=== PATIENT | female | born 1995 | race Caucasian/White ===

== ENCOUNTER 2018-08-21 08:49 | Observation (INO) | payer OTHER ==
[2018-08-21 09:43] LABS: PLATELET COUNT 194 10^3/uL (150-400)
[2018-08-21] MEDS ORDERED: NS 1,000 ML IV ONE ×2 (09:54→12:22)
--- NOTE | 2018-08-21 09:58 | EDPHY ---
H & P Source: Patient <Estuardo Saenz - Last Filed: 08/21/18 12:32> Stated Complaint: rlq abd pain - Personal History LMP (Females 10-55): 1-7 Days Ago Current Tetanus Diphtheria and Acellular Pertussis (TDAP): Yes - Medical/Surgical History Hx Asthma: No Hx Chronic Respiratory Disease: No Hx Diabetes: No Hx Cardiac Disease: No Hx Renal Disease: No Hx Cirrhosis: No Hx Alcoholism: No Hx HIV/AIDS: No Hx Splenectomy or Spleen Trauma: No Other PMH: denies - Social History Smoking Status: Never smoked <Ata Portillo - Last Filed: 08/21/18 16:57> Time Seen by Provider: 08/21/18 08:54 HPI/ROS: CLINICAL IMPRESSION: Right lower quadrant abdominal pain ASSESSMENT/PLAN: 23-year-old female presents to the emergency department by request of her primary care for evaluation of approximately 18 hr of right lower quadrant pain associated with anorexia, nausea, and fever last night. Patient has significant right lower quadrant pain, guarding, and mild focal peritoneal findings. Labs show a leukocytosis of 12 with left shift, no electrolyte imbalance or acute renal failure. Urine shows no signs of UTI, pyelonephritis, and patient is not . Imaging options discussed including ultrasound of the appendix versus CT and patient has elected for CT imaging. CT was read and interpreted by radiologist showing an 8 mm appendix, mild inflammation versus artifact present, indeterminate read for acute appendicitis. Case was discussed with Dr. Saenz who also saw and examined the patient. Dr. Rosa with General surgery came to the ED and evaluated the patient as well. It was determined that this may be a very early appendicitis and she was taken to the operating room after consent was obtained by General surgery. IV antibiotics and Toradol ordered in the ED per General surgery request. Patient stabilized prior to discharge to OR. DIFFERENTIAL DX: Differential diagnosis includes but not limited to acute appendicitis, ovarian torsion, ovarian cyst, salpingitis, TOA, small-bowel obstruction, cholecystitis , nephrolithiasis, ureterolithiasis, ectopic , PID, UTI, pyelonephritis. ED PROCEDURES: ED COURSE: 10:00 a.m.: Labs and urine results discussed with the patient. She remains with significant right lower quadrant pain with focal peritoneal findings but is refusing antiemetics and IV analgesics. She has agreed to CT scan. Urine negative. 1110: Case and CT discussed with Dr. Sharpe. CT read as "mild inflammation vs artifact" Appendix dilated to 8mm. Reviewed CT with Dr. Saenz who also saw and examined patient. Will discuss with Dr. Rosa. CHIEF COMPLAINT: Right lower quadrant abdominal pain HPI: This is a healthy 23-year-old female presents to the emergency department by request of PCP, Clayton David PA-C, for evaluation of possible appendicitis. Patient reports yesterday evening she developed a fever of 100. At midnight awoke with severe right lower quadrant pain that persisted for 3 hr. Pain had abated slightly this morning, she went for a walk but then pain returned and has been severe since that time. This is associated with nausea and anorexia. She last ate last night. No reported vomiting or diarrhea. She has felt slightly constipated. No history of prior abdominal surgeries. She is sexually active, takes a mini pill, is currently on her menstrual cycle, and does not believe she is . No history of gynecologic complaints including ovarian cyst, endometriosis or fibroids. No UTI symptoms or abnormal discharge. She has not taken anything for pain. No new medications, antibiotics, new foods or travel. PMH: Otherwise healthy Pertinent Past Surgical History: None reported Family History: Noncontributory Social History: Nonsmoker ROS: All other systems negative Constitutional: + fever, no chills, +appetite change.] ENT: No sore throat, congestion, ear pain. Cardiovascular: No chest pain, no palpitations. Respiratory: No cough, no shortness of breath. Gastrointestinal: no vomiting, diarrhea. Genitourinary: No hematuria, dysuria, flank pain, pelvic pain Musculoskeletal: No back pain, joint swelling, joint pain, myalgias. Skin: No rashes, color change. Neurological: No headache, dizziness, weakness. PHYSICAL EXAM: General Appearance: Alert, oriented, appropriate, cooperative, NAD, well hydrated, non-toxic appearing, VSS, no hypoxia, appears uncomfortable HEENT: TMs are clear bilaterally no perforation or FB, no injection, no evidence of serous or mucopurulent otitis. Oropharynx clear is no erythema or exudates, no tonsillar hypertrophy or asymmetry. Dentition without abnormality. Neck: Supple, nontender, no lymphadenopathy, no midline pain, FROM, no meningismus. Respiratory: There are no retractions, lungs are clear to auscultation. Cardiac: Regular rate and rhythm, no murmurs or gallops. Gastrointestinal: Abdominal pain with guarding to RLQ. pain extends into RUQ. No distension. Pain over McBurney's point. Neurological: Alert and oriented x 3, CN 2-12 grossly intact, normal gait no ataxia, DTR's intact, normal sensation and strength Skin: Warm, dry, no rashes, no nodules on palpation. Psychiatric: Patient is oriented X 3, there is no agitation. MDM: Patient was seen independently by established practice protocols. Secondary supervising physician at time of evaluation was Dr. Saenz. Diagnosis: Right lower quadrant abdominal pain, nausea. New, requires workup Summary: See Assessment and Plan for summary of ED visit Clinical lab tests: ordered / reviewed. Independent visualization of images, tracing, or specimens: Yes. Discussed patient with another provider: Dr. Saenz, Dr. Rosa Risk of comlications, morbidity, mortality: Presenting problem moderate Diagnostic procedures moderate Management Options moderate Patient Progress: Stable. (Ata Portillo) Constitutional: Initial Vital Signs Temperature (C) 36.6 C 08/21/18 08:50 Heart Rate 67 08/21/18 08:50 Respiratory Rate 18 08/21/18 08:50 Blood Pressure 139/85 H 08/21/18 08:50 O2 Sat (%) 98 08/21/18 08:50 O2 Delivery Mode Room Air Allergies/Adverse Reactions: No Known Allergies Allergy (Verified 08/21/18 13:01) Home Medications: Medication Instructions Recorded Norethindrone [Serena] 1 each PO DAILY 08/21/18 Medical Decision Making <Estuardo Saenz - Last Filed: 08/21/18 12:32> <Ata Portillo - Last Filed: 08/21/18 16:57> - Diagnostics Imaging Results: Imaging Impressions Abdomen CT 08/21/18 09:53 Impression: 1. Equivocal for mild appendicitis. Tip of the appendix has minimal enhancement and periappendiceal stranding; however, adjacent artifact obscures fine detail. 2. Trace free fluid in the pelvis. Normal appearing right ovary. Findings discussed with Emergency Department physician assistant manager/embalmer, Ata Portillo PA-C on August 21, 2018 at 1110 hours. Other Provider: Independent physician evaluation: I evaluated and participated in the management of the patient. I also evaluated the patient independently. My co-signature indicates that I have reviewed this chart and I agree with the findings and plan of care as documented. My personal H&P findings include: Patient presents to the ED with a 1 day history of worsening abdominal pain. She denies any fever, vomiting or dysuria. She denies prior history of abdominal pathology. She currently rates her pain is moderate to severe in nature. Physical exam: General Appearance: Alert, no distress Eyes: Pupils equal and round no pallor or injection ENT, Mouth: Mucous membranes moist Respiratory: There are no retractions, lungs are clear to auscultation Cardiovascular: Regular rate and rhythm Gastrointestinal: Marked tenderness to palpation with rebound in the right lower quadrant, no peritoneal signs Neurological: 5 out of 5 strength all 4 extremities Skin: Warm and dry, no rashes Musculoskeletal: Neck is supple nontender Extremities: symmetrical, full range of motion Psychiatric: Patient is oriented X 3, there is no agitation ED course: Patient was noted to have a slight leukocytosis with an elevated white blood cell count of 12K. CT scan of the abdomen pelvis was obtained which demonstrates possible appendiceal inflammation versus artifact. Re-evaluated the patient personally at 11:15 a.m.: She continues to have ongoing right lower quadrant tenderness. Surgical consultation is requested from Dr. Rosa. 12:30 p.m.: The patient will be taken to surgery by Dr. Rosa. She received IV antibiotics in the emergency department. (Estuardo Saenz) - Data Points Laboratory Results: Laboratory Results 08/21/18 09:00 08/21/18 09:00 08/21/18 08/21/18 08/21/18 09:10 09:00 09:00 WBC 12.41 10^3/uL H 10^3/uL (3.80-9.50) RBC 4.33 10^6/uL 10^6/uL (4.18-5.33) Hgb 13.7 g/dL g/dL (12.6-16.3) Hct 40.9 % % (38.0-47.0) MCV 94.5 fL fL (81.5-99.8) MCH 31.6 pg pg (27.9-34.1) MCHC 33.5 g/dL g/dL (32.4-36.7) RDW 12.9 % % (11.5-15.2) Plt Count 194 10^3/uL 10^3/uL (150-400) MPV 10.9 fL fL (8.7-11.7) Neut % (Auto) Not Reported Lymph % (Auto) Not Reported Rusk % (Auto) Not Reported Eos % (Auto) Not Reported Baso % (Auto) Not Reported Nucleat RBC Rel Count Not Reported Absolute Neuts (auto) Not Reported Absolute Lymphs (auto) Not Reported Absolute Monos (auto) Not Reported Absolute Eos (auto) Not Reported Absolute Basos (auto) Not Reported Absolute Nucleated RBC Not Reported Immature Gran % Not Reported Seg Neutrophils % 71.8 % % Band Neutrophils % 0.0 % % Lymphocytes % 22.7 % % Monocytes % 5.5 % % Eosinophils % 0.0 % % Basophils % 0.0 % % Metamyelocytes % 0.0 % % Myelocytes % 0.0 % % Promyelocytes % 0.0 % % Blast Cells % 0.0 % % Immature Gran # Not Reported Absolute Seg Neuts 8.72 10^3/uL H 10^3/uL (1.70-6.50) Absolute Band Neuts 0.00 10^3/uL 10^3/uL (0.00-0.70) Absolute Lymphocytes 2.76 10^3/uL 10^3/uL (1.00-3.00) Absolute Monocytes 0.67 10^3/uL 10^3/uL (0.30-0.80) Absolute Eosinophils 0.00 10^3/uL L 10^3/uL (0.03-0.40) Absolute Basophils 0.00 10^3/uL L 10^3/uL (0.02-0.10) Absolute Metamyelocyte 0.00 10^3/mL 10^3/mL (0.00-0.00) Absolute Myelocytes 0.00 10^3/mL 10^3/mL (0.00-0.00) Absolute Promyelocytes 0.00 10^3/uL 10^3/uL (0.00-0.00) Absolute Plasma Cells 0.00 10^3/uL 10^3/uL (0.00-0.00) Nucleated RBCs 0 /100 WBC /100 WBC (0-0) Absolute Blast Cells 0.00 10^3/uL 10^3/uL (0.00-0.00) Plasma Cells % 0.0 % % Platelet Estimate ADEQUATE (ADEQ) Sodium 139 mEq/L mEq/L (135-145) Potassium 4.0 mEq/L mEq/L (3.3-5.0) Chloride 104 mEq/L mEq/L (97-110) Carbon Dioxide 24 mEq/l mEq/l (22-31) Anion Gap 11 mEq/L mEq/L (6-14) BUN 9 mg/dL mg/dL (7-23) Creatinine 0.7 mg/dL mg/dL (0.6-1.0) Estimated GFR > 60 Glucose 87 mg/dL mg/dL (70-100) Calcium 9.7 mg/dL mg/dL (8.5-10.4) Urine RBC 1-3 /hpf /hpf (0-3) Urine WBC 1-3 /hpf /hpf (0-3) Ur Epithelial Cells TRACE /lpf /lpf (NONE-1+) Medications Given: Acetaminophen (Tylenol) 1,000 mg PO Q8 DEX Stop: 02/17/19 15:29 Last Admin: 08/21/18 15:25 Dose: 1,000 mg Discontinued Medications Cefazolin Sodium (Ancef Syringe) Confirm Administered Dose 2 gm .ROUTE .STK-MED ONE Stop: 08/21/18 12:58 Last Admin: 08/21/18 13:30 Dose: 2 gm Fentanyl (Sublimaze) 25 - 100 mcg IVP Q5M PRN PRN Reason: PACU, IMMEDIATE Pain control Stop: 08/21/18 14:13 Last Admin: 08/21/18 15:21 Dose: 25 mcg Heparin Sodium (Porcine) (Heparin Sc Injection) Confirm Administered Dose 10, 000 unit .ROUTE .STK-MED ONE Stop: 08/21/18 12:58 Last Admin: 08/21/18 13:30 Dose: 10,000 unit Sodium Chloride (Ns) 1,000 mls @ 0 mls/hr IV EDNOW ONE; Wide Open PRN Reason: Protocol Stop: 08/21/18 09:55 Last Admin: 08/21/18 09:58 Dose: 1,000 mls Ceftriaxone Sodium/Dextrose (Rocephin 1 Gm (Premix)) 50 mls @ 100 mls/hr IV EDNOW ONE PRN Reason: Protocol Stop: 08/21/18 12:49 Last Admin: 08/21/18 12:33 Dose: 50 mls Metronidazole/Sodium Chloride (Flagyl 500 Mg (Premix)) 100 mls @ 100 mls/hr IV EDNOW ONE PRN Reason: Protocol Stop: 08/21/18 13:20 Last Admin: 08/21/18 12:34 Dose: 100 mls Sodium Chloride (Ns) 1,000 mls @ 0 mls/hr IV EDNOW ONE; Wide Open PRN Reason: Protocol Stop: 08/21/18 12:23 Last Admin: 08/21/18 12:34 Dose: 1,000 mls Lactated Ringer's (Lr) 1,000 mls @ 0 mls/hr IV ONCE ONE PRN Reason: Per Protocol Stop: 08/21/18 13:02 Last Admin: 08/21/18 15:27 Dose: Not Given Ketorolac Tromethamine (Toradol) 30 mg IVP EDNOW ONE Stop: 08/21/18 12:22 Last Admin: 08/21/18 12:33 Dose: 30 mg Point of Care Test Results: Urine Collection Date 08/21/18 Collection Time 09:10 HCG Results Negative Departure <Estuardo Saenz - Last Filed: 08/21/18 12:32> <Ata Portillo - Last Filed: 08/21/18 16:57> - Departure Disposition: [facility] Inpatient Acute Clinical Impression: Acute appendicitis Condition: Good
[2018-08-21] MEDS ORDERED: IOPAMIDOL (ISOVUE-300) 100 ML BTL ONE (09:59)
[2018-08-21] MEDS ORDERED: KETOROLAC 30 MG/1 ML SDV IVP ONE (12:21)
[2018-08-21] MEDS ORDERED: ONDANSETRON 4 MG/2 ML VIAL IVP PRN ×2 (12:36→13:13)
[2018-08-21] MEDS ORDERED: HYDROmorphONE/DILAUDID 1 MG/ML INJ IVP PRN (12:36)
[2018-08-21] MEDS ORDERED: ACETAMINOPHEN 325 MG TAB PO SCH (12:45)
[2018-08-21] MEDS ORDERED: MIDAZOLAM 2 MG/2 ML VIAL ONE (12:57)
[2018-08-21] MEDS ORDERED: HEPARIN 5,000 UNIT/0.5 ML INJ ONE (12:57)
[2018-08-21] MEDS ORDERED: ROCURONIUM 50 MG/5 ML VIAL ONE (12:57)
[2018-08-21] MEDS ORDERED: LIDOCAINE 2% 2 ML INJ ONE (12:57)
[2018-08-21] MEDS ORDERED: ONDANSETRON 4 MG/2 ML VIAL ONE (12:57)
[2018-08-21] MEDS ORDERED: PROPOFOL 200 MG/20 ML VIAL ONE (12:57)
[2018-08-21] MEDS ORDERED: ceFAZolin 1 GM/5 ML SYR ONE (12:57)
[2018-08-21] MEDS ORDERED: fentaNYL 250 MCG/5 ML INJ ONE (12:57)
[2018-08-21] MEDS ORDERED: DEXAMETHASONE 4 MG/ML VIAL ONE (12:57)
[2018-08-21] MEDS ORDERED: LR 1,000 ML IV SCH (13:00)
[2018-08-21] MEDS ORDERED: LR 1,000 ML IV ONE (13:01)
[2018-08-21] MEDS ORDERED: MEPERIDINE 25 MG/0.5 ML AMP IVP PRN (13:13)
[2018-08-21] MEDS ORDERED: PHENYLEPHRINE HCL 100 MCG/ML SYR IVP PRN (13:13)
[2018-08-21] MEDS ORDERED: fentaNYL 100 MCG/2 ML INJ IVP PRN (13:13)
[2018-08-21] MEDS ORDERED: NALOXONE HCL 0.4 MG/ML INJ IVP PRN (13:13)
[2018-08-21] MEDS ORDERED: METOCLOPRAMIDE 10 MG/2 ML VIAL IVP PRN (13:13)
[2018-08-21] MEDS ORDERED: oxyCODONE IR 5 MG TAB PO PRN (13:13)
[2018-08-21] MEDS ORDERED: HYDROmorphONE/DILAUDID 2 MG/ML INJ IVP PRN (13:13)
[2018-08-21] MEDS ORDERED: LR 500 ML IV PRN (13:13)
[2018-08-21] MEDS ORDERED: PROMETHAZINE HCL 25 MG/ML INJ IVP PRN (13:13)
--- NOTE | 2018-08-21 13:13 | PDANEPAE ---
ANE Past Medical History - Cardiovascular History Hx Hypertension: No Hx Chest Pain: No - Pulmonary History Hx COPD: No Hx Oxygen in Use at Home: No Hx Sleep Apnea: No - Endocrine History Hx Diabetes: No - Renal History Hx Renal Disorders: No - Liver History Hx Hepatic Disorders: No - Neurological & Psychiatric Hx Hx Neurological and Psychiatric Disorders: No - Cancer History Hx Cancer: No - Congenital Disorder History Hx Congenital Disorders: No - GI History Gastrointestinal History Comment: Hx of colonoscopy for irregular bowel habits. Denies Crohn or uc - Surgical History Prior Surgeries: Colonoscopy ANE Review of Systems Review of Systems: ANE Patient History - Allergies Allergies/Adverse Reactions: No Known Allergies Allergy (Verified 08/21/18 13:01) - Home Medications Home Medications: Norethindrone [Serena] 1 each PO DAILY 08/21/18 [Last Taken Unknown] - NPO status NPO Since - Liquids (Date): 08/21/18 NPO Since - Liquids (Time): 08:00 NPO Since - Solids (Date): 08/20/18 NPO Since - Solids (Time): 20:00 - Smoking Hx Smoking Status: Never smoked MONALISA Labs/Vital Signs - Labs Result Diagrams: 08/21/18 09:00 08/21/18 09:00 - Vital Signs Blood Pressure: 126/80 Heart Rate: 69 Respiratory Rate: 16 O2 Sat (%): 96 Height: 167.64 cm Weight: 63.503 kg MONALISA Physical Exam - Airway Neck exam: FROM Mallampati Score: Class 1 Mouth exam: normal dental/mouth exam - Pulmonary Pulmonary: no respiratory distress, no rales or rhonchi, clear to auscultation - Cardiovascular Cardiovascular: regular rate and rhythym, no murmur, rub, or gallop - ASA Status ASA Status: II, E ANE Anesthesia Plan Anesthesia Plan: general endotracheal anesthesia
--- NOTE | 2018-08-21 13:21 | GHP ---
DATE OF ADMISSION: 08/21/2018 ADMISSION DIAGNOSIS: Right lower quadrant inflammation/early appendicitis. HISTORY: The patient is a 23-year-old female who was in her usual state of good health yesterday. She had dinner, which consisted of a seafood stew at 8 p.m. She subsequently went to bed and woke at midnight with severe right lower quadrant pain. She also had nausea without vomiting. Her temperature 100 F. She finally was able to get to bed after taking a bath at 3 a.m. that caused her pain to be somewhat better. This morning, the pain continued. She was anorectic. She did move her bowels once this morning with no change in her pain level. She has chronically suffered from irritable bowel disease. In fact, she has even had a colonoscopy. She does not, however, have a recent upper respiratory tract infection. Her last menstrual period started last and is just completing at this point. She has not had any unusual diarrhea. Often with her inflammatory bowel disease, she gets up after meals and run to the bathroom , but no change in her baseline. She has not had any travel or antibiotics in the last 6 months. She has had no prior similar symptoms, but she did note that when she had physical exam last week (routine), she did have some slight right lower quadrant tenderness. There is no history of inflammatory bowel disease or prior abdominal surgery. SOCIAL HISTORY: She does not smoke. She drinks 1-2 drinks per week. ALLERGIES: She is allergic to penicillin as manifested by a rash. MEDICATIONS: She does take a "mini" pill for contraception that contains progesterone only. PAST SURGICAL HISTORY: She has had no prior surgery. PAST MEDICAL HISTORY: There is no history of rheumatic fever, tuberculosis, hepatitis, or transfusions. She has had 4 prior concussions. 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 There are no limits on her activities, and no history of steroid use. PHYSICAL EXAMINATION: VITAL SIGNS: Temperature is 36.6, blood pressure is 123/72, heart rate is 63, respirations are 16, room air sat is 98%. GENERAL: She is awake, alert, and complaining of right lower quadrant pain. She is pleasant and interactive. HEENT: Her skull is normocephalic and atraumatic. NEUROLOGIC: There is no focal lateralizing neurologic findings. LYMPHATIC: There is no cervical, supraclavicular, axillary or inguinal lymphadenopathy. NECK: There are no carotid bruits. Thyroid is not enlarged. BACK: Unremarkable. LUNGS: Clear to auscultation. CARDIAC: S1, S2 to be normal. Normal split of S2 without murmurs, rubs, or gallops. ABDOMEN: Hypoactive bowel sounds. There is no distinct distention. She is tender with cough at McBurney's site, is level of 6/10. She has a positive psoas and negative obturator sign. To palpation, left upper quadrant is 2/10, left mid abdomen is 3, left lower quadrant is 4, epigastrium is 2, periumbilical area is 5, suprapubic area is 6, right upper quadrant is 2, right mid abdomen is 6, right lower quadrant is 8. Over the iliac crest is nontender. LABORATORY/IMAGING: White count of 12.4 with 72% neutrophils, 0% bands, hematocrit is 40, platelet count is 194. Chemistries show BUN of 9, creatinine of 0.7, glucose of 87. Her CT shows a left ovarian cyst. There is no fluid in the pelvis. There is a hyperemia of a minimally distended appendix with some slight periappendiceal smudging. I do appreciate some lymphadenopathy along the ileocolic vessels. IMPRESSION: Patient with severe right lower quadrant pain. Certainly, her appendix is not very impressive and her story is also impressive, but nonetheless, that is the primary diagnosis. Mesenteric adenitis is also a possible diagnosis. I doubt but cannot rule out that there is an enteric process or an inflammatory bowel process. We have talked about the options of observation or observation with antibiotics, or an operative resolution. We have agreed to pursue the latter approach. /[id number]/MODL MTDD
[2018-08-21] MEDS ORDERED: SUGAMMADEX SODIUM 200 MG/2 ML VIAL IVP ONE (14:28)
--- NOTE | 2018-08-21 14:55 | POSTOPPROG ---
Post Op Note Date of Operation: 08/21/18 Surgeon: Varghese Rosa Anesthesia: GET(General Endotracheal) Pre-op Diagnosis: Appendicitis, mesenteric adenitis Post-op Diagnosis: Appendicitis (non ruptured), mesenteric adenitis Indication: Appendicitis, mesenteric adenitis Procedure: laparoscopic appendectomy Findings: Appendicitis (non ruptured), mesenteric adenitis Inf/Abcess present in the surg proc area at time of surgery?: No EBL: Minimal Total fluids administered: 400 Complications: none Specimen(s): appendix
[2018-08-21] MEDS ORDERED: fentaNYL 100 MCG/2 ML INJ ONE (15:17)
[2018-08-21] MEDS ORDERED: ACETAMINOPHEN 500 MG TAB ONE (15:18)
[2018-08-21] MEDS: ACETAMINOPHEN 500 MG TAB PO SCH ×2 (15:25→23:34)
--- NOTE | 2018-08-21 15:28 | GOP ---
DATE OF OPERATION: 08/21/2018 SURGEON: Varghese Rosa MD ANESTHESIA: General endotracheal. PREOPERATIVE DIAGNOSIS: Acute appendicitis with mesenteric adenitis. POSTOPERATIVE DIAGNOSIS: Acute appendicitis (not ruptured) with mesenteric adenitis. PROCEDURE PERFORMED: Laparoscopic appendectomy. FINDINGS: Acute appendicitis (nonruptured) with mesenteric adenitis. SPECIMENS: Appendix. ESTIMATED BLOOD LOSS: Minimal. INDICATIONS: Acute appendicitis with mesenteric adenitis. DESCRIPTION OF PROCEDURE: The patient was placed on the operating table in the supine position. After induction of adequate general endotracheal anesthesia, the abdomen was carefully prepped and draped. A surgical time-out was carried out and agreed to by all members of the operative team. Note was made that preoperatively she has had 1 g of Rocephin and 500 mg of Flagyl IV. A curvilinear incision was planned at the umbilicus. A linear 5 mm incision was planned in oblique orientation in the left lower quadrant and a transverse orientation in the suprapubic region. The skin was incised at all 3 sites. At the umbilicus, dissection was carefully carried out using a spreading technique down to the anterior rectus sheath, which was elevated between Allis clamps. The fascia was incised. A pursestring of 0 PDS was placed in the fascia. The peritoneum was entered. An 11-12 mm disposable Clarke trocar was positioned and intraabdominal insufflation was carried out to 15 mmHg. The patient was placed in the 25 degree Trendelenburg position. The 5 mm ports were placed under direct vision. She was now rotated 5 degrees to the left. The appendix was easily identified. There were adhesions between the cecum and the lateral abdominal wall which were carefully freed using a Harmonic scalpel. This exposed the appendix. The mesoappendix was carefully elevated and transected using a Harmonic scalpel. The appendix was cleared down to its base. A 35 mm Endo-ASHLEY stapler was placed across the cecal-appendiceal junction and fired, taking a small cuff of cecum. Hemostasis was excellent. The specimen was placed in an EndoCatch bag and delivered via the umbilical port site. Pneumoperitoneum was re-established. Careful inspection showed no evidence of bleeding at the staple line. Photographic documentation was carried out of the right ovary, the left ovary (with cyst), and uterus. A picture was also taken of the gallbladder. Note there was no fluid in the pelvis. Irrigation with heparin and Ancef-containing irrigant was carried out nonetheless. Hemostasis was deemed to be excellent. The pneumoperitoneum was released after the 5 mm ports had been removed under direct vision. Inverted simple suture of #0 PDS was placed at the midpoint of the fascial incision and tied. The pursestring was now tied. Hemostasis was checked and achieved with Bovie electrocautery as needed. Irrigation with heparin and Ancef-containing irrigant was carried out at the umbilical site. All skin incisions were closed with inverted simple sutures of #4-0 Vicryl. Mastisol and Steri-Strips were placed. Band-Aids were positioned. The patient was transferred to recovery in stable and satisfactory condition. FLUIDS ADMINISTERED: 400 cc. COMPLICATIONS: None. /[id number]/MODL MTDD
--- NOTE | 2018-08-21 16:09 | POSTANESTH ---
Post Anesthetic Evaluation Cardiovascular Status: Normal, Stable Respiratory Status: Normal, Stable Level of Consciousness/Mental Status: Can Participate in Eval Pain Control: Adequate, Prn Tx Ordered Nausea/Vomiting Control: Adequate, Prn Tx Ordered Complications Possibly Related to Anesthesia: None Noted
[2018-08-21] MEDS ORDERED: KETOROLAC 15 MG/1 ML SDV IVP SCH (18:00)
[2018-08-21] MEDS: KETOROLAC 15 MG/1 ML SDV IVP SCH (18:22)
[2018-08-22] MEDS: KETOROLAC 15 MG/1 ML SDV IVP SCH ×2 (00:25→06:28)
[2018-08-22 07:36] VITALS: BP 112/69
[2018-08-22] MEDS: ACETAMINOPHEN 500 MG TAB PO SCH (07:36)
[2018-08-22] MEDS ORDERED: NORETHINDRONE PO SCH (09:00)
[2018-08-22] MEDS ORDERED: ENOXAPARIN 40 MG/0.4 ML SYR SC SCH (09:00)
--- NOTE | 2018-08-22 09:25 | SOAPPROG ---
SOAP Progress Note Assessment/Plan: POD#1 08/22/2018 Assessment: Afebrile, VSS, eating, passing flatus Plan: Discharge Subjective: I feel much better Objective: Vital Signs Temp Pulse Resp BP Pulse Ox 36.8 C 69 16 112/69 98 08/22/18 07:34 08/22/18 07:34 08/22/18 07:34 08/22/18 07:34 08/22/18 07:34 08/21/18 08/22/18 08/23/18 05:59 05:59 05:59 Intake Total 560 Output Total 430 Balance 130 - Time Spent With Patient Time Spent With Patient: 15 Physical Exam - Physical Exam General Appearance: WD/WN, alert, no apparent distress Respiratory: chest non-tender, lungs clear, normal breath sounds Cardiac/Chest: regular rate, rhythm Abdomen: normal bowel sounds, non-tender, soft, other (Incisions clean and dry) Pelvic Exam: deferred Rectal: deferred Back: Normal inspection Skin: normal color, warm/dry Neuro/Psych: no motor/sensory deficits, alert, normal mood/affect ICD10 Worksheet Patient Problems: Problems Problem Status Onset Acute appendicitis Acute
--- NOTE | 2018-08-22 09:59 | GDS ---
DIAGNOSIS: Acute appendicitis (unruptured) with mesenteric adenitis. SURGERY PERFORMED: Laparoscopic appendectomy. CONDITION AT DISCHARGE: Improved. DISPOSITION: Home. DIET: Unrestricted, although I recommend she avoid constipating foods, such as bananas, rice, applesauce, and cheese. DISCHARGE MEDICATIONS: Will include Tylenol 1000 mg every 8 hours, Toradol 10 mg p.o. every 6 hours to be supplemented with Motrin 200 mg when Toradol has completed if needed. She has also been dispensed five 2 mg Dilaudid tablets to take for severe breakthrough pain, but she is instructed to call Dr. Johns' office should increase pain be noted. She will continue her oral contraceptive , and she is to use an alternate contraception for the next 2 cycles. DISCHARGE INSTRUCTIONS/FOLLOWUP: For the next 3 weeks, she is to lift less than 10 pounds. She is to maintain activity and avoid sitting because of her prothrombin gene deficiency/hypercoagulable state. As she is up and about I will not send her out on Lovenox as I feel her DVT risk is at her baseline. She will shower only. She is to keep her Steri-Strips in place. She is take a multivitamin with 100% of the recommended daily allowance of zinc, copper, and C daily. She is to watch for signs of infection, superficial infection would be manifested by redness, warmth, swelling, and tenderness, while deep space infection will be manifested by fevers, chills, malaise, and abdominal pain. She is to follow up with Dr. José Luis Johns in 2 weeks. She will follow up with DEUCE Peter, her primary care provider as needed. HOSPITAL COURSE: The patient was admitted and taken to the operating room. An uneventful appendectomy was performed. Note is made, she did have an unruptured acute appendicitis with mesenteric adenitis. Postop day 1, she is doing well and is set up for discharge. /[id number]/MODL MTDD
== END 2018-08-22 10:15 | disposition home or self-care (01) ==
LOC: FOB 16:30
PROVIDERS: ADMIT Surgery; ATTEND Surgery
PROC: 0DTJ4ZZ Resection of Appendix, Percutaneous Endoscopic Approach (ICD-10-PCS; principal; 2018-08-21 13:30)
DX: K35.80 Unspecified acute appendicitis (principal); I88.0 Nonspecific mesenteric lymphadenitis; E86.9 Volume depletion, unspecified; K58.0 Irritable bowel syndrome with diarrhea; D68.52 Prothrombin gene mutation; Z88.0 Allergy status to penicillin
CPT/HCPCS: 44970; 74177; 96361; 96372; 96374; 96376; 99285; G0378; J0696; J1100; J1644; J1650; J1885; J2250; J2405; J2704; J3010; Q9967